=== PATIENT | female | born 1985 | race Caucasian/White ===

== ENCOUNTER 2019-09-30 06:13 | Emergency (ER) | payer BC ==
[~2019-09-30] VITALS: Ht 162.6 cm; Wt 50.0 kg
[2019-09-30] MEDS ORDERED: ipratropium/albuterol 3ml nebule NEB ONE (06:15)
[2019-09-30] MEDS ORDERED: dexamethasone 4mg tablet PO ONE ×2 (06:15→06:50)
[2019-09-30] MEDS ORDERED: ALBU8.5H8 INH (07:22)
[2019-09-30] MEDS ORDERED: PRED20TA PO (07:22)
[2019-09-30 07:56] VITALS: BP 108/50
== END 2019-09-30 08:02 | disposition home or self-care (01) ==
LOC: ER 06:14
DX: J45.901 Unspecified asthma with (acute) exacerbation (principal)
CPT/HCPCS: 94640; 94760; 99283

== ENCOUNTER 2021-05-09 08:13 | Emergency (ER) | payer BC ==
[~2021-05-09] VITALS: Ht 162.6 cm; Wt 54.0 kg
[~2021-05-09 08:13] MED LIST: ALBU8.5H17 INH
[2021-05-09 08:23] VITALS: BP 112/81
== END 2021-05-09 08:45 | disposition home or self-care (01) ==
LOC: ER 08:13
DX: J30.9 Allergic rhinitis, unspecified (principal); R11.0 Nausea; R05 Cough; R09.81 Nasal congestion; Z88.8 Allergy status to other drugs, medicaments and biological substances; Z79.899 Other long term (current) drug therapy
CPT/HCPCS: 99281

== ENCOUNTER 2021-07-02 11:44 | Outpatient (CLI) | payer BC ==
[2021-07-02 12:40] LABS: BASOPHILS % (AUTO) 0.3 % (0-1); EOSINOPHILS # (AUTO) 0.2 X10'3 (0-0.9); EOSINOPHILS % (AUTO) 1.8 % (0-6); HEMATOCRIT 34.8 % (35.0-45.0); HEMOGLOBIN 11.9 g/dl (12.0-16.0); LYMPHOCYTES # (AUTO) 1.7 X10'3 (1.1-4.8); MEAN CORPUSCULAR HEMOGLOBIN 31.4 PG (27.0-31.0); MEAN CORPUSCULAR HGB CONC 34.2 g/dL (33.0-36.5); MEAN CORPUSCULAR VOLUME 91.8 FL (78-98); MEAN PLATELET VOLUME 7.1 FL (7.4-10.4); MONOCYTES # (AUTO) 0.5 X10'3 (0-0.9); MONOCYTES % (AUTO) 5.2 % (2-12); NEUTROPHILS # (AUTO) 7.2 X10'3 (1.8-7.7); NEUTROPHILS % (AUTO) 74.7 % (42-75); PLATELET COUNT 299 X10'3 (140-440); RED BLOOD COUNT 3.79 X10'6 (4.20-5.60); RED CELL DISTRIBUTION WIDTH 13.1 % (11.5-14.5); WHITE BLOOD COUNT 9.6 X10'3 (4.5-11.0)
[2021-07-02 12:52] LABS: URINE AMPHETAMINE SCREEN NEGATIVE (Neg); URINE BARBITUATE SCREEN NEGATIVE (Neg); URINE BENZODIAZEPINES SCREEN NEGATIVE (Neg); URINE CANNABINOID SCREEN NEGATIVE (Neg); URINE COCAINE SCREEN NEGATIVE (Neg); URINE METHADONE SCREEN NEGATIVE (Neg); URINE OPIATE SCREEN NEGATIVE (Neg); URINE PHENCYCLIDINE SCREEN NEGATIVE (Neg)
[2021-07-02 13:28] LABS: HIV ANTIBODY 1&2 RAPID NON-REACTIVE (Neg)
[2021-07-03 07:06] LABS: HBSAG SCREEN Negative (Negative); HEPATITIS C ANTIBODY <0.1 s/co ratio (0.0-0.9)
== END 2021-07-02 23:59 | disposition home or self-care (01) ==
LOC: LAB 11:44
PROVIDERS: ATTEND Specialist
DX: Z34.00 Encounter for supervision of normal first pregnancy, unspecified trimester (principal); Z3A.00 Weeks of gestation of pregnancy not specified
CPT/HCPCS: 36415; 80305; 83036; 85025; 86592; 86703; 86762; 86803; 86885; 86900; 86901; 87088; 87340

== ENCOUNTER 2021-08-21 09:41 | Outpatient (CLI) | payer BC | END 2021-08-21 23:59 | disposition home or self-care (01) | LOC: RAD 09:41 | PROVIDERS: ATTEND Specialist | DX: Z36.0 Encounter for antenatal screening for chromosomal anomalies (principal); Z36.86 Encounter for antenatal screening for cervical length; Z3A.20 20 weeks gestation of pregnancy | CPT/HCPCS: 36415; 76805 ==

== ENCOUNTER 2021-10-23 11:21 | Outpatient (CLI) | payer BC | END 2021-10-23 23:59 | disposition home or self-care (01) | LOC: RAD 11:21 | PROVIDERS: ATTEND Specialist | DX: Z36.2 Encounter for other antenatal screening follow-up (principal); Z3A.29 29 weeks gestation of pregnancy | CPT/HCPCS: 76801 ==

== ENCOUNTER 2021-12-16 07:53 | Emergency (ER) | payer BC ==
[~2021-12-16] VITALS: Ht 162.6 cm; Wt 77.3 kg
[2021-12-16 08:35] LABS: BASOPHILS % (AUTO) 0.3 % (0-1); EOSINOPHILS # (AUTO) 0.2 X10'3 (0-0.9); EOSINOPHILS % (AUTO) 2.5 % (0-6); HEMATOCRIT 33.6 % (35.0-45.0); HEMOGLOBIN 11.2 g/dl (12.0-16.0); LYMPHOCYTES # (AUTO) 1.3 X10'3 (1.1-4.8); LYMPHOCYTES % (AUTO) 15.2 % (21-51); MEAN CORPUSCULAR HEMOGLOBIN 28.9 PG (27.0-31.0); MEAN CORPUSCULAR HGB CONC 33.2 g/dL (33.0-36.5); MEAN CORPUSCULAR VOLUME 86.9 FL (78-98); MEAN PLATELET VOLUME 8.3 FL (7.4-10.4); MONOCYTES # (AUTO) 0.7 X10'3 (0-0.9); MONOCYTES % (AUTO) 7.6 % (2-12); NEUTROPHILS # (AUTO) 6.5 X10'3 (1.8-7.7); NEUTROPHILS % (AUTO) 74.4 % (42-75); PLATELET COUNT 267 X10'3 (140-440); RED BLOOD COUNT 3.87 X10'6 (4.20-5.60); WHITE BLOOD COUNT 8.7 X10'3 (4.5-11.0)
[2021-12-16 09:01] LABS: ALANINE AMINOTRANSFERASE 24 U/L (12-78); ALBUMIN 2.4 G/DL (3.4-5.0); ALBUMIN/GLOBULIN RATIO 0.6 (1.1-1.5); ALKALINE PHOSPHATASE 202 IU/L (46-116); ASPARTATE AMINO TRANSFERASE 53 U/L (10-37); BILIRUBIN,TOTAL 0.3 MG/DL (0.1-1.0); BLOOD UREA NITROGEN 7 MG/DL (7-18); BUN/CREATININE RATIO 9.9 (6.6-38.0); CALCIUM 8.7 MG/DL (8.5-10.1); CHLORIDE 101 MMOL/L (99-107); CREATININE 0.71 MG/DL (0.40-0.90); GLUCOSE 87 MG/DL (70-104); POTASSIUM 4.1 MMOL/L (3.5-5.1); SODIUM 134 MMOL/L (135-145); TOTAL PROTEIN 6.4 G/DL (6.4-8.2); eGFR > 90 ML/MIN
[2021-12-16] MEDS ORDERED: metoclopramide 5 mg/ml inj IV ONE (09:05)
[2021-12-16 09:07] LABS: ANION GAP 13 (8-16); TOTAL CARBON DIOXIDE 19.7 MMOL/L (24-32)
--- NOTE | 2021-12-16 09:15 | NUR ---
flu obtained taken to lab
--- NOTE | 2021-12-16 10:33 | NUR ---
Pt states she still feels "yucky", none worse than when she came in. Denies nausea.
[2021-12-16] MEDS ORDERED: FLUT1DIS INH (10:52)
[2021-12-16 11:11] VITALS: BP 119/78
== END 2021-12-16 11:16 | disposition home or self-care (01) ==
LOC: ER 07:53
DX: O99.513 Diseases of the respiratory system complicating pregnancy, third trimester (principal); J06.9 Acute upper respiratory infection, unspecified; Z3A.36 36 weeks gestation of pregnancy; J45.909 Unspecified asthma, uncomplicated; Z91.018 Allergy to other foods
CPT/HCPCS: 36415; 71045; 80053; 85025; 87502; 87503; 96374; 99285; J2765

== ENCOUNTER 2021-12-23 09:36 | Outpatient (CLI) | payer BC ==
[~2021-12-23 09:36] MED LIST changes: +FLUT1DIS INH
[2021-12-23 11:09] LABS: BASOPHILS # (AUTO) 0.1 X10'3 (0-0.2); BASOPHILS % (AUTO) 1.1 % (0-1); EOSINOPHILS % (AUTO) 0.4 % (0-6); HEMOGLOBIN 11.8 g/dl (12.0-16.0); LYMPHOCYTES # (AUTO) 1.4 X10'3 (1.1-4.8); LYMPHOCYTES % (AUTO) 17.4 % (21-51); MEAN CORPUSCULAR HEMOGLOBIN 29.4 PG (27.0-31.0); MEAN CORPUSCULAR HGB CONC 33.8 g/dL (33.0-36.5); MEAN PLATELET VOLUME 8.3 FL (7.4-10.4); MONOCYTES # (AUTO) 0.4 X10'3 (0-0.9); MONOCYTES % (AUTO) 5.4 % (2-12); NEUTROPHILS # (AUTO) 6.1 X10'3 (1.8-7.7); NEUTROPHILS % (AUTO) 75.7 % (42-75); PLATELET COUNT 298 X10'3 (140-440); RED BLOOD COUNT 4.03 X10'6 (4.20-5.60); RED CELL DISTRIBUTION WIDTH 14.1 % (11.5-14.5)
== END 2021-12-23 23:59 | disposition home or self-care (01) ==
LOC: LAB 09:36
PROVIDERS: ATTEND Registered Nurse
DX: Z34.02 Encounter for supervision of normal first pregnancy, second trimester (principal); Z3A.00 Weeks of gestation of pregnancy not specified
CPT/HCPCS: 36415; 82950; 85025; 86592

== ENCOUNTER 2021-12-31 07:36 | Outpatient (CLI) | payer BC | END 2021-12-31 23:59 | disposition home or self-care (01) | LOC: RAD 07:36 | PROVIDERS: ATTEND Specialist | DX: O36.63X0 Maternal care for excessive fetal growth, third trimester, not applicable or unspecified (principal); Z3A.37 37 weeks gestation of pregnancy | CPT/HCPCS: 76805 ==